=== PATIENT | female | born 1955 | race Caucasian/White ===

== ENCOUNTER 2018-08-09 10:25 | Emergency (ER) | payer MEDICARE, OTHER ==
[~2018-08-09] VITALS: Ht 152.4 cm; Wt 68.0 kg
[2018-08-09] MEDS ORDERED: LEVO125T8 PO (10:41)
[2018-08-09] MEDS ORDERED: ZOLP5TAB8 PO (10:48)
[2018-08-09] MEDS ORDERED: PANTOPRAZOLE SODIUM 40 MG VIAL IV ONE (11:00)
[2018-08-09] MEDS ORDERED: ASPIRIN 325 MG TABLET PO ONE (11:00)
[2018-08-09] MEDS ORDERED: ONDANSETRON 4 MG/2 ML VIAL IV ONE (11:00)
[2018-08-09] MEDS ORDERED: ONDANSETRON 4 MG/2 ML VIAL ONE (11:05)
[2018-08-09] MEDS ORDERED: NITROGLYCERIN 0.4 MG/TAB BOTTLE SL ONE (11:05)
[2018-08-09] MEDS ORDERED: ASPIRIN 325 MG TABLET ONE (11:05)
[2018-08-09] MEDS ORDERED: PANTOPRAZOLE SODIUM 40 MG VIAL ONE (11:05)
[2018-08-09 11:16] LABS: BASOPHILS % (AUTO) 0.8 % (0.0-2.0); EOSINOPHILS # (AUTO) 0.1 K/uL (0.0-0.7); EOSINOPHILS % (AUTO) 1.8 % (0.0-7.0); HEMATOCRIT 37.1 % (31.2-41.9); HEMOGLOBIN 12.4 g/dL (10.9-14.3); LYMPHOCYTES # (AUTO) 1.1 K/uL (20.0-40.0); LYMPHOCYTES % (AUTO) 32.4 % (20.5-51.5); MEAN CORPUSCULAR HEMOGLOBIN 28.5 uug (24.7-32.8); MEAN CORPUSCULAR HGB CONC 34 g/dL (32.3-35.6); MEAN CORPUSCULAR VOLUME 85.1 fL (75.5-95.3); MONOCYTES # (AUTO) 0.3 K/uL (2.0-10.0); MONOCYTES % (AUTO) 8.8 % (0.0-11.0); NEUTROPHILS # (AUTO) 1.9 K/uL (1.8-8.9); NEUTROPHILS % (AUTO) 56.2 % (38.5-71.5); PLATELET COUNT (AUTO) 179 K/uL (179-408); RED BLOOD CELL COUNT(AUTO) 4.36 MIL/uL (3.63-4.92); WHITE BLOOD COUNT (AUTO) 3.4 K/uL (3.8-11.8)
[2018-08-09 11:19] LABS: *BILIRUBIN,URIN 1+ (NEGATIVE); *BLOOD, URINE 3+ (NEGATIVE); *CLARITY,URINE CLEAR (CLEAR); *COLOR,URINE DARK YELLOW (YELLOW); *KETONES,URINE NEGATIVE (NEGATIVE); *PROTEIN,URINE 1+ (NEGATIVE); *UROBILINOGEN,URINE 0.2 E.U./dl (NORMAL); LEUKOCYTE ESTERASE ,URINE NEGATIVE (NEGATIVE); NITRITE, URINE NEGATIVE (NEGATIVE); UGLUCOSE NEGATIVE (NEGATIVE)
[2018-08-09] MEDS: NITROGLYCERIN 0.4 MG/TAB BOTTLE SL ONE ×2 (11:19→11:33)
[2018-08-09 11:25] LABS: RBC,URINE 20-50 /HPF (0-3); WBC,URINE 0-3 /HPF (0-3)
[2018-08-09 11:26] LABS: BACTERIA,URINE FEW /HPF (NONE SEEN); MUCUS,URINE MODERATE /LPF (0-FEW); SQUAMOUS EPITHELIAL CELL,UR FEW /HPF (NONE SEEN)
[2018-08-09 11:27] LABS: CREATININE 0.9 mg/dL (0.6-1.3); POTASSIUM 3.9 mmol/L (3.5-5.1)
[2018-08-09 11:40] LABS: BILIRUBIN,TOTAL 0.6 mg/dL (0.2-1.0); TOTAL PROTEIN, SERUM 7.6 g/dL (6.4-8.2)
[2018-08-09] MEDS ORDERED: IV NORMAL SALINE 250 ML IV ONE (13:40)
[2018-08-09] MEDS ORDERED: IOHEXOL 300MG/ML 100 ML INFUS..BTL ONE (13:40)
[2018-08-09] MEDS ORDERED: SWABABLE VALVE TRANSFER SET EA MC ONE (13:40)
--- NOTE | 2018-08-09 15:30 | NUR ---
Patient does not wish to proceed with medical care recommended by Dr. Precious CABRERA ). Patient given information related to possible complications, up to and including , which could occur as a result of leaving the hospital at this time. Patient verbalizes understanding of risks involved due to leaving against medical advice. Patient has signed AMA form.PT ACCOMPANIED BY DAUGHTER.PT WALKS IN STEADY GAIT. PT DENIES ANY PAIN OR NAUSEA AT THIS POINT.
[2018-08-09 15:31] VITALS: BP 131/77
== END 2018-08-09 15:32 | disposition left against medical advice (07) ==
LOC: ER 10:28
DX: K80.20 Calculus of gallbladder without cholecystitis without obstruction (principal); R07.89 Other chest pain; R31.29 Other microscopic hematuria; E03.9 Hypothyroidism, unspecified; Z79.899 Other long term (current) drug therapy
CPT/HCPCS: 36415; 71045; 74177; 80053; 81001; 83690; 83880; 84484; 85025; 85730; 93005 ×2; 96374; 99284; C9113; Q9967; 70030-TC; A4663; J2405; J7050

== ENCOUNTER 2018-10-31 07:00 | Day surgery (SDC) | payer MEDICARE, OTHER ==
[~2018-10-31 07:00] MED LIST: LEVO125T8 PO; ZOLP5TAB8 PO
[2018-10-31] MEDS ORDERED: KETOROLAC TROMETHAMINE 30 MG INJ IM ONE (07:01)
[2018-10-31] MEDS ORDERED: NEOSTIGMINE METHYLSULFATE 10 MG/10 ML VIAL IV ONE (07:01)
[2018-10-31] MEDS ORDERED: PROPOFOL 200 MG/20 ML BOTTLE IV ONE (07:01)
[2018-10-31] MEDS ORDERED: SIMETHICONE 40 MG/0.6 ML, 30ML BOTTLE MC ONE (07:01)
[2018-10-31] MEDS ORDERED: DEXAMETHASONE SOD PHOSPHATE 4 MG INJ IV ONE (07:01)
[2018-10-31] MEDS ORDERED: ONDANSETRON 4 MG/2 ML VIAL IV ONE (07:01)
[2018-10-31] MEDS ORDERED: SEVOFLURANE 250 ML BOTTLE IH ONE (07:01)
[2018-10-31] MEDS ORDERED: IV LACTATED RINGERS SOLUTION 1,000 ML BAG IV ONE (07:01)
[2018-10-31] MEDS ORDERED: GLYCOPYRROLATE 0.2 MG/ML VIAL MC ONE (07:01)
[2018-10-31] MEDS ORDERED: LIDOCAINE HCL 2% 20 ML VIAL MC ONE (07:01)
[2018-10-31 07:43] LABS: *BLOOD, URINE 3+ (NEGATIVE); *CLARITY,URINE CLEAR (CLEAR); *COLOR,URINE YELLOW (YELLOW); *KETONES,URINE NEGATIVE (NEGATIVE); *UROBILINOGEN,URINE 0.2 E.U./dl (NORMAL); HEMATOCRIT 39.4 % (31.2-41.9); HEMOGLOBIN 12.9 g/dL (10.9-14.3); LEUKOCYTE ESTERASE ,URINE NEGATIVE (NEGATIVE); MEAN CORPUSCULAR HEMOGLOBIN 27.6 uug (24.7-32.8); MEAN CORPUSCULAR HGB CONC 33 g/dL (32.3-35.6); MEAN CORPUSCULAR VOLUME 84.3 fL (75.5-95.3); MONOCYTES % (AUTO) 7.8 % (0.0-11.0); NEUTROPHILS % (AUTO) 50.5 % (38.5-71.5); NITRITE, URINE NEGATIVE (NEGATIVE); PLATELET COUNT (AUTO) 189 K/uL (179-408); RED BLOOD CELL COUNT(AUTO) 4.68 MIL/uL (3.63-4.92); UGLUCOSE NEGATIVE (NEGATIVE); WHITE BLOOD COUNT (AUTO) 3.7 K/uL (3.8-11.8)
[2018-10-31 07:44] LABS: BASOPHILS # (AUTO) 0.1 K/uL (0.0-8.0); BASOPHILS % (AUTO) 1.4 % (0.0-2.0); EOSINOPHILS # (AUTO) 0.1 K/uL (0.0-0.7); EOSINOPHILS % (AUTO) 2.3 % (0.0-7.0); LYMPHOCYTES # (AUTO) 1.4 K/uL (20.0-40.0); MONOCYTES # (AUTO) 0.3 K/uL (2.0-10.0); NEUTROPHILS # (AUTO) 1.9 K/uL (1.8-8.9)
[2018-10-31 07:52] LABS: CREATININE 0.8 mg/dL (0.6-1.3); POTASSIUM 3.6 mmol/L (3.5-5.1)
[2018-10-31 08:01] LABS: *BILIRUBIN,URIN 1+ (NEGATIVE)
[2018-10-31 08:03] LABS: RBC,URINE 50-80 /HPF (0-3)
[2018-10-31] MEDS ORDERED: LIDOCAINE HCL 1% 20 ML VIAL ONE (08:03)
[2018-10-31 08:04] LABS: WBC,URINE 0-3 /HPF (0-3)
[2018-10-31] MEDS ORDERED: BUPIVACAINE/EPI PF 0.25% 30 ML VIAL ONE (08:04)
[2018-10-31 08:06] LABS: BACTERIA,URINE NONE SEEN /HPF (NONE SEEN); MUCUS,URINE MODERATE /LPF (0-FEW); SQUAMOUS EPITHELIAL CELL,UR FEW /HPF (NONE SEEN); TRANSITIONAL EPI CELLS,URINE FEW /LPF (NONE SEEN)
[2018-10-31] MEDS ORDERED: HYDROMORPHONE 2 MG/1 ML DISP.SYRIN ONE (09:28)
[2018-10-31] MEDS ORDERED: ROCURONIUM BROMIDE 50 MG/5 ML VIAL ONE (09:28)
[2018-10-31] MEDS ORDERED: IOHEXOL 300MG/ML 50 ML VIAL ONE (10:03)
[2018-10-31] MEDS ORDERED: METRONIDAZOLE 500 MG/NS 100 ML PIGGYBACK IV ONE (10:34)
[2018-10-31] MEDS ORDERED: HYDROCODONE/APAP 5-325MG TABLET ONE (13:53)
== END 2018-10-31 14:30 | disposition home or self-care (01) ==
LOC: DS 07:00
PROVIDERS: ATTEND Surgery
DX: K80.12 Calculus of gallbladder with acute and chronic cholecystitis without obstruction (principal); K43.9 Ventral hernia without obstruction or gangrene; D13.4 Benign neoplasm of liver; I10 Essential (primary) hypertension; K21.9 Gastro-esophageal reflux disease without esophagitis; E66.3 Overweight; Z79.899 Other long term (current) drug therapy; Z88.2 Allergy status to sulfonamides; Z98.890 Other specified postprocedural states; Z79.01 Long term (current) use of anticoagulants
CPT/HCPCS: 36415; 47379; 47562; 49652; 64488; 80048; 81001; 85025; 85730; 88304; 88307; 88312; J1100; J1170; J1885; J2405; J2710; J3490 ×6; J7120 ×2; A4663; Q9967